=== PATIENT | male | born 1970 | race Caucasian/White ===

== ENCOUNTER → 2017-05-20 | Outpatient (CLI) | payer OTHER ==
[~2017-05-20] MED LIST: LANS30CA12 PO; MEDLIST
[2017-05-20 18:11] LABS: THYROID STIMULATING HORMONE 0.26 uIu/ml (0.300-4.500)
== END | disposition home or self-care (01) ==
LOC: C.LAB1850 17:06
PROVIDERS: ATTEND Physician Assistant
DX: E05.90 Thyrotoxicosis, unspecified without thyrotoxic crisis or storm (principal)

== ENCOUNTER → 2017-06-24 | Outpatient (CLI) | payer OTHER | END | disposition home or self-care (01) | LOC: C.LAB1850 10:31 | PROVIDERS: ATTEND Physician Assistant | DX: E05.90 Thyrotoxicosis, unspecified without thyrotoxic crisis or storm (principal) ==